=== PATIENT | female | born 1965 | race Caucasian/White ===

== ENCOUNTER → 2019-09-15 | Outpatient (CLI) | payer BC, OTHER ==
[~2019-09-15] VITALS: Ht 154.9 cm; Wt 51.3 kg
[~2019-09-15] MED LIST: ALDACTONE25 MG PO; CYMBALTA60 MG PO; FLEXERIL PO; ZOLOFT50 MG PO
[2019-09-15 10:33] VITALS: BP 116/80
--- NOTE | 2019-09-15 10:46 | NUR ---
Pain Clinic Assessment: 1. History of Osteoarthritis: NONE History of Rheumatoid Arthritis: NONE 2. Height: 5 ft. 1 in. 154.9 cm. Weight: 113.0 lb. oz. 51.256 kg. Patient's BMI: 21.4 3. Vital Signs: BP: 116/80 Pulse: 81 Resp: 14 Temp: 02 Sat: 100 ECG Mon: 4. Pain Intensity: 6 5. Fall Risk: Dizziness: N Needs help standing or walking: N Fallen in the last 3 months: N Fall risk comments: 6. Patient on Blood Thinner: None 7. History of Hypertension: N 8. Opioid Therapy greater than 6 weeks: Opiate Contract Signed: 9. Risk Assessment Tool Provided: LOW 10. Functional Assessment Tool: 11. Recreational Drug Use: Never Drug Type: Tobacco Use: Never Smoker Tobacco Type: Amount or Packs/day: How Many Years: Alcohol Use: Past use Frequency: Weekly Quant: 2-3 DRINKS
--- NOTE | 2019-10-08 08:14 | HPC ---
[facility] [address] [place] [address] PAIN MANAGEMENT CONSULTATION Name: TINA SANZ Room #: REG DIANE KemarChinoElisabeth#: [id number] Admission: 09/15/19 Attend Phys: Jake Wilson MD Discharge: Date of : 65 Report #: [id number] THIS REPORT FOR: //name// CC: Jake Ellis DATE OF SERVICE: 09/15/2019 CHIEF COMPLAINT: Neck and back pain. HISTORY OF PRESENT ILLNESS: The patient is a 53-year-old female who has been referred to the pain clinic for evaluation of neck and back pain. The patient has noticed a worsening of neck pain over the last few months. It was significantly problematic in approximately 01/2019. She did try nonsteroidal anti-inflammatory medications such as Aleve. Because of her constant pain and discomfort, she also occasionally notes pain in the left shoulder area. Describes it as a 6/10. Feels that it is exacerbated by most activities of daily living. Describes it as a constant, aching, gnawing type of discomfort. Denies any trauma. Does not particularly awakened from sleep because of the discomfort. 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 She has some episodes where she notes pain in the lower portion of her back with some numbness in her right foot and toes. She is experiencing some Charley horse sensations in her right leg. She has been told that she has a bulging disk in the lower portion of her back. ALLERGIES: No known drug allergies. MEDICATIONS: Spironolactone 25 mg, Cymbalta 60 mg, Zoloft 50 mg. PAST MEDICAL HISTORY: Skin cancer. PAST SURGICAL HISTORY: Jaw surgery in 1995, 2001. Ovarian/oophorectomy in 1993. Skin cancer surgery in 2001. SOCIAL HISTORY: She is a astronomy teacher. She is working. REVIEW OF SYSTEMS: Generally good health, headaches, wears glasses, numbness and tingling in the leg, depression. LABORATORY DATA: No laboratory values are available at the time of our interview. PAIN CLINIC ASSESSMENT AND PQRS: 1. History of osteoarthritis. The patient is not being treated for [facility] [address] [place] [address] PAIN MANAGEMENT CONSULTATION Name: TINA SANZ Room #: REG [facility].#: [id number] Admission: 09/15/19 Attend Phys: Jake Wilson MD Discharge: Date of : 65 Report #: [id number] osteoarthritis and is not being treated for rheumatoid arthritis. 2. Height 5 feet 1 inch, weight 113 pounds, BMI is 21.4. 3. Vital Signs: Blood pressure 116/80, pulse 81, respiratory rate 14, room air saturation is 100%. 4. Pain intensity 05/10. 5. Fall history: The patient has not fallen in the last 3 months. 6. Blood thinner. The patient is not on a blood thinning medication. 7. Hypertension. The patient is not being treated for hypertension. 8. Opioids greater than 6 weeks. The patient is not on opioid regimen. 9. Risk assessment tool for opioid is low. 10. Functional assessment tool 35/70. 11. Recreational drug use. The patient denies. 12. Tobacco: The patient has never smoked. 13. Alcohol: The patient drinks 2-3 alcoholic beverages weekly. PHYSICAL EXAMINATION: GENERAL: The patient is a well-developed, well-nourished white female. Appears her stated age. She is alert and oriented x 3. Her affect is appropriate. Speech is fluent. HEENT: Normocephalic, atraumatic. Extraocular eye muscles intact. Sclerae nonicteric. Mucous membranes are moist. NECK: Without adenopathy. The patient has some pain and discomfort in the left neck area as well as pain down into the left shoulder. Upper extremity muscle strength is judged to be 5/5 for the major muscle groups in the upper extremity. Deep tendon reflexes are +1 at the biceps bilaterally. HEART: Regular rate. LUNGS: Clear to auscultation. ABDOMEN: Nontender. MUSCULOSKELETAL: Lower extremity muscle strength is judged to be 5/5 for the major muscle groups in the lower extremity. The patient without significant scoliosis, kyphosis or lordosis. Deep tendon reflexes are +1 at the knees. The patient is not complaining of lumbar radicular pain at this juncture. Palpation of the left neck area indicates some soreness. Left and right lateral rotation, left and right lateral bending were not very problematic. Cervical compression, cervical traction were not very problematic. Palpation in the area of the trapezius reveals some evidence of a trigger point. Palpation over the scapula near the levator scapulae did reproduce a component of her pain that radiates up into the neck area. Cervical compression did not increase pain or discomfort. IMPRESSION: 1. Myofascial pain, left trapezius area. 2. History of right lumbar radicular pain. 3. Cervical paraspinous muscle spasms. RECOMMENDATIONS: We discussed treatment options with the patient. A model was used to identify the area of discomfort. The patient has a discrete trigger [address] [address] PAIN MANAGEMENT CONSULTATION Name: TINA SANZ Room #: ULICES Owens#: [id number] Admission: 09/15/19 Attend Phys: Jake Wilson MD Discharge: Date of : 65 Report #: [id number] point in the left shoulder area. Palpation in the area of the scapula and levator scapulae on the left reproduces a component of her pain and discomfort. We will proceed with a trigger point injection to the affected area. Risks and benefits of the injection, which could include but are not limited to infection, worsening of pain, bleeding, tension pneumothorax with placement of chest tubes. The patient elects to proceed. PROCEDURE NOTE: The patient was taken to the procedure area. The patient was assisted in getting on the examination table. A chair was placed under her feet. She sat perpendicular to the table. Her left shoulder area was sterilely prepped with a chlorhexidine solution and allowed to dry. Trigger point in the trapezius area was identified. A 25-gauge needle was then advanced into the area of the trigger point. The patient states that this did reproduce a component of her pain. Aspiration was negative for air. A total of 40 mg triamcinolone and 10 mL of 0.5% bupivacaine was injected. The patient tolerated the procedure well. There were no complications. She remained in the Pain Clinic for an appropriate amount of time. She will follow up in the future as needed. We will consider use of a nonsteroidal anti-inflammatory medication such as Mobic in the future. The patient will try Flexeril 10 mg 1 p.o. at bedtime to help with muscle spasms. We would like to thank you for letting us participate in her care. We hope she continues to improve. <ELECTRONICALLY SIGNED> By: Jake Wilson MD 10/08/19 [id number] Jake Wilson MD /nt
== END | disposition home or self-care (01) ==
LOC: PAIN 07:03
DX: M79.18 Myalgia, other site (principal); M54.16 Radiculopathy, lumbar region; M54.2 Cervicalgia; F32.9 Major depressive disorder, single episode, unspecified; Z85.828 Personal history of other malignant neoplasm of skin; Z79.899 Other long term (current) drug therapy; Z98.890 Other specified postprocedural states